=== PATIENT | female | born 1990 | race African-American/Black ===

== ENCOUNTER 2018-08-13 16:42 | Emergency (ER) | payer OTHER ==
[~2018-08-13] VITALS: Ht 172.7 cm; Wt 72.6 kg
[2018-08-13] MEDS ORDERED: IV NORMAL SALINE 1000ML BAG 1,000 ML IV SCH (17:03)
--- NOTE | 2018-08-13 17:12 | PHYS DOC ---
Past Medical History Past Medical History: No Pertinent History Past Surgical History: No Surgical History Alcohol Use: None Drug Use: None Adult General Chief Complaint Chief Complaint: ABDOMINAL PAIN HPI HPI Patient is a 28 year old female who presents with left upper quadrant pain that wraps around to her back that started this morning. She last ate last night and had chips and salsa. Patient states she's only had a couple sips of water today. She's vomited twice and had some diarrhea that started last week. Patient states she's had this same pain when she was 13 but never went for follow-up and never found out what results of an EGD was. She states that EGD was about extending years ago. Patient states she's been having this pain since she was 13 that is just comes and goes. Patient doesn't think it has anything to do with what she is eating. Patient states it is sharp and radiates to the back. Patient denies constipation issues or dysuria. Afebrile. Review of Systems Review of Systems Constitutional: Denies fever or chills [] Eyes: Denies change in visual acuity, redness, or eye pain [] HENT: Denies nasal congestion or sore throat [] Respiratory: Denies cough or shortness of breath [] Cardiovascular: No additional information not addressed in HPI [] GI: Left upper quadrant abdominal pain, nausea, vomiting, denies bloody stools, + diarrhea [] : Denies dysuria or hematuria [] Musculoskeletal: Denies back pain or joint pain [] Integument: Denies rash or skin lesions [] Neurologic: Denies headache, focal weakness or sensory changes [] All other systems were reviewed and found to be within normal limits, except as documented in this note. Current Medications Current Medications Current Medications Medications (Trade) Dose Ordered Sig/Oksana Start Time Stop Time Status Last Admin Dose Admin Famotidine (Pepcid Vial) 20 mg 1X ONCE 08/13/18 17:15 08/13/18 17:16 DC 08/13/18 17:45 20 MG Fentanyl Citrate (Fentanyl 2ml Vial) 50 mcg 1X ONCE 08/13/18 17:15 08/13/18 17:16 DC 08/13/18 17:44 50 MCG Iohexol (Omnipaque 300 Mg/ml) 75 ml 1X ONCE 08/13/18 17:45 08/13/18 17:47 DC 08/13/18 18:02 75 ML Ondansetron HCl (Zofran) 4 mg 1X ONCE 08/13/18 17:15 08/13/18 17:16 DC 08/13/18 17:46 4 MG Sodium Chloride 1,000 ml @ 1,000 mls/hr Q1H 08/13/18 17:03 08/13/18 18:02 DC 08/13/18 17:43 1,000 MLS/HR Allergies Allergies Allergies Coded Allergies Type Severity Reaction Last Updated Verified No Known Drug Allergies 11/07/13 No Physical Exam Physical Exam Constitutional: Well developed, well nourished, no acute distress, non-toxic appearance. [] HENT: Normocephalic, atraumatic, bilateral external ears normal, oropharynx moist, no oral exudates, nose normal. [] Eyes: PERRLA, EOMI, conjunctiva normal, no discharge. [] Neck: Normal range of motion, no tenderness, supple, no stridor. [] Cardiovascular:Heart rate regular rhythm, no murmur [] Lungs & Thorax: Bilateral breath sounds clear to auscultation [] Abdomen: Bowel sounds normal, soft, epigastric and left upper quadrant tenderness, no masses, no pulsatile masses. [] Skin: Warm, dry, no erythema, no rash. [] Back: No tenderness, no CVA tenderness. [] Extremities: No tenderness, no cyanosis, no clubbing, ROM intact, no edema. [] Neurologic: Alert and oriented X 3, normal motor function, normal sensory function, no focal deficits noted. [] Psychologic: Affect normal, judgement normal, mood normal. [] Current Patient Data Vital Signs Vital Signs Date Time Temp Pulse Resp B/P (MAP) Pulse Ox O2 Delivery O2 Flow Rate FiO2 08/13/18 18:31 70 137/88 (104) 100 Room Air 08/13/18 17:44 20 08/13/18 17:00 98.1 98.1 Lab Values Laboratory Tests Test 08/13/18 16:50 08/13/18 17:04 08/13/18 17:10 Urine Collection Type Unknown Urine Color Yellow Urine Clarity Clear Urine pH 6.5 Urine Specific [place] 1.020 Urine Protein Negative mg/dL (NEG-TRACE) Urine Glucose (UA) Negative mg/dL (NEG) Urine Ketones (Stick) Negative mg/dL (NEG) Urine Blood Negative (NEG) Urine Nitrite Negative (NEG) Urine Bilirubin Negative (NEG) Urine Urobilinogen Dipstick 0.2 mg/dL (0.2 mg/dL) Urine Leukocyte Esterase Small (NEG) Urine RBC 1-2 /HPF (0-2) Urine WBC 5-10 /HPF (0-4) Urine Squamous Epithelial Cells Mod /LPF Urine Bacteria Few /HPF (0-FEW) Urine Mucus Slight /LPF Urine Opiates Screen Neg (NEG) Urine Methadone Screen Neg (NEG) Urine Barbiturates Neg (NEG) Urine Phencyclidine Screen Neg (NEG) Urine Amphetamine/Methamphetamine Neg (NEG) Urine Benzodiazepines Screen Neg (NEG) Urine Cocaine Screen Neg (NEG) Urine Cannabinoids Screen Pos (NEG) Urine Ethyl Alcohol Neg (NEG) POC Urine HCG, Qualitative Hcg negative (Negative) White Blood Count 6.3 x10^3/uL (4.0-11.0) Red Blood Count 4.48 x10^6/uL (3.50-5.40) Hemoglobin 13.1 g/dL (12.0-15.5) Hematocrit 40.0 % (36.0-47.0) Mean Corpuscular Volume 89 fL (79-100) Mean Corpuscular Hemoglobin 29 pg (25-35) Mean Corpuscular Hemoglobin Concent 33 g/dL (31-37) Red Cell Distribution Width 13.9 % (11.5-14.5) Platelet Count 176 x10^3/uL (140-400) Neutrophils (%) (Auto) 64 % (31-73) Lymphocytes (%) (Auto) 30 % (24-48) Monocytes (%) (Auto) 5 % (0-9) Eosinophils (%) (Auto) 1 % (0-3) Basophils (%) (Auto) 1 % (0-3) Neutrophils # (Auto) 4.0 x10^3uL (1.8-7.7) Lymphocytes # (Auto) 1.9 x10^3/uL (1.0-4.8) Monocytes # (Auto) 0.3 x10^3/uL (0.0-1.1) Eosinophils # (Auto) 0.1 x10^3/uL (0.0-0.7) Basophils # (Auto) 0.0 x10^3/uL (0.0-0.2) Sodium Level 142 mmol/L (136-145) Potassium Level 3.5 mmol/L (3.5-5.1) Chloride Level 103 mmol/L (98-107) Carbon Dioxide Level 26 mmol/L (21-32) Anion Gap 13 (6-14) Blood Urea Nitrogen 10 mg/dL (7-20) Creatinine 0.7 mg/dL (0.6-1.0) Estimated GFR (Cockcroft-Gault) 119.7 BUN/Creatinine Ratio 14 (6-20) Glucose Level 89 mg/dL (70-99) Calcium Level 9.0 mg/dL (8.5-10.1) Total Bilirubin 0.4 mg/dL (0.2-1.0) Aspartate Amino Transferase (AST) 15 U/L (15-37) Alanine Aminotransferase (ALT) 15 U/L (14-59) Alkaline Phosphatase 58 U/L (46-116) Total Protein 7.8 g/dL (6.4-8.2) Albumin 4.1 g/dL (3.4-5.0) Albumin/Globulin Ratio 1.1 (1.0-1.7) Lipase 48 U/L (73-393) L Laboratory Tests 08/13/18 17:10 Laboratory Tests 08/13/18 17:10 EKG EKG [] Radiology/Procedures Radiology/Procedures CT abdomen pelvis Impressions: [facility] [address] [place], [place] [id number] IMAGING REPORT Signed PATIENT: ASHELY SALINAS ACCOUNT: [id number] : 1990 LOCATION: ER AGE: 28 SEX: F EXAM STATUS: REG ER ORD. PHYSICIAN: MO HARRINGTON APRN REASON: left upper abdominal pain PROCEDURE: CT ABD PELV W/ IV CONTRST ONLY CT abdomen and pelvis with contrast. HISTORY: Left upper quadrant abdominal pain, nausea and vomiting today CT scan of the abdomen and pelvis was done using 75 mL Omnipaque 300 contrast. Lung bases are clear except for linear scarring or atelectasis on the left. There is no effusion. Liver is normal in appearance. There is no calcified gallstone or gallbladder wall thickening. Spleen is normal in appearance. Adrenal glands and pancreas are unremarkable. There is no mass or hydronephrosis in either kidney. There is no bowel obstruction or ascites. There is no free air. There is moderate stool in the colon. There is no adenopathy. Appendix is normal. There is not evidence of an acute diverticulitis. There is no small bowel obstruction. There is a small amount of free fluid in the pelvis which is nonspecific. Uterus is normal in appearance. Ovaries are upper normal in size without a dominant mass or cyst. IMPRESSION: 1. Small amount of fluid in the pelvis, nonspecific. 2. No abdominal or pelvic mass or acute finding noted. 3. Moderate stool in the colon. Electronically signed by: Kurt Redman MD (08/13/2018 6:23 PM) [facility] DICTATED and SIGNED BY: KURT REDMAN MD DATE: 08/13/181817 Course & Med Decision Making Course & Med Decision Making Patient is a 28 year old female who presents with left upper quadrant pain that wraps around to her back that started this morning. She last ate last night and had chips and salsa. Patient states she's only had a couple sips of water today. She's vomited twice and had some diarrhea that started last week. Patient states she's had this same pain when she was 13 but never went for follow-up and never found out what results of an EGD was. She states that EGD was about extending years ago. Patient states she's been having this pain since she was 13 that is just comes and goes. Patient doesn't think it has anything to do with what she is eating. Patient states it is sharp and radiates to the back. Patient denies constipation issues or dysuria. Afebrile. Abdomen is soft but tender on the left upper quadrant and epigastric area. There is no CVA tenderness. Skin pink warm and dry. Mucous membranes are moist. Walks with steady gait. Patient rating her pain out of 10. Blood work is unremarkable. Urinalysis does not show infection. Ultrasound of abdomen and pelvis shows 1. Small amount of fluid in the pelvis, nonspecific. 2. No abdominal or pelvic mass or acute finding noted. 3. Moderate stool in the colon. Patient will be sent home with a stool softener and told to start taking Pepcid twice a day and she will be referred to a GI states this pain has been going on for 16 years. Ana Disclaimer Bryanon Disclaimer This electronic medical record was generated, in whole or in part, using a voice recognition dictation system. Departure Departure Impression: Primary Impression: Epigastric pain Disposition: 01 HOME, SELF-CARE Condition: STABLE Referrals: ALVERTO TORRES DO (PCP) TEMI ZAIDI MD Patient Instructions: Diet for Gastroesophageal Reflux Disease, Adult, Gastroesophageal Reflux Disease, Adult Additional Instructions: Follow-up with her GI doctor since his pain is been going on for many years. Drink plenty of fluids. Start taking Pepcid twice a day and see if that helps her pain. Start taking the Colace stool softener to see if that also helps her pain. Scripts Ondansetron (ONDANSETRON ODT) 4 Mg Tab.rapdis 1 TAB PO PRN Q6-8HRS, #15 TAB Prov: MO HARRINGTON APRN 08/13/18 Docusate Sodium (COLACE) 100 Mg Capsule 1 CAP PO BID for 10 Days, #20 CAP Prov: MO HARRINGTON APRN 08/13/18 Famotidine (PEPCID) 20 Mg Tablet 20 MG PO BID for 10 Days, #20 TAB Prov: MO HARRINGTON APRN 08/13/18 MO HARRINGTON APRN Aug 13, 2018 17:12
[2018-08-13 17:13] LABS: BILIRUBIN,URINE NEGATIVE (NEG); CLARITY,URINE CLEAR; COLOR,URINE YELLOW; NITRITE,URINE NEGATIVE (NEG); PH,URINE 6.5; PROTEIN,URINE NEGATIVE (NEG-TRACE); UROBILINOGEN,URINE 0.2 mg/dL (0.2 mg/dL)
[2018-08-13] MEDS ORDERED: FAMOTIDINE 20 MG/2 ML VIAL IVP ONE (17:15)
[2018-08-13] MEDS ORDERED: fentaNYL PF VIAL 100 MCG/2 ML VIAL IV ONE (17:15)
[2018-08-13] MEDS ORDERED: ONDANSETRON PF 4 MG/2 ML VIAL. IV ONE (17:15)
[2018-08-13 17:21] LABS: BARBITURATES NEG (NEG); BENZODIAZEPINES NEG (NEG); CANNABINOIDS POS (NEG); COCAINE NEG (NEG); METHADONE NEG (NEG); OPIATES NEG (NEG); PHENCYCLIDINE NEG (NEG)
[2018-08-13 17:23] LABS: AMPHETAMINE/METHAMPHETAMINE NEG (NEG); BACTERIA,URINE FEW /HPF (0-FEW); SQUAMOUS EPITHELIAL CELL,UR MOD /LPF
[2018-08-13 17:24] LABS: BASO % 1 % (0-3); EOS # 0.1 x10^3/uL (0.0-0.7); EOS % 1 % (0-3); HEMOGLOBIN 13.1 g/dL (12.0-15.5); LYMPH # 1.9 x10^3/uL (1.0-4.8); LYMPH % 30 % (24-48); MEAN CORPUSCULAR HEMOGLOBIN 29 pg (25-35); MEAN CORPUSCULAR HGB CONC 33 g/dL (31-37); MEAN CORPUSCULAR VOLUME 89 fL (79-100); MONO # 0.3 x10^3/uL (0.0-1.1); MONO % 5 % (0-9); NEUT % 64 % (31-73); PLATELET COUNT 176 x10^3/uL (140-400); RED BLOOD COUNT 4.48 x10^6/uL (3.50-5.40); RED CELL DISTRIBUTION WIDTH 13.9 % (11.5-14.5); WHITE BLOOD COUNT 6.3 x10^3/uL (4.0-11.0)
[2018-08-13 17:41] LABS: CREATININE 0.7 mg/dL (0.6-1.0); GFR 119.7; POTASSIUM 3.5 mmol/L (3.5-5.1)
[2018-08-13 17:44] LABS: ALBUMIN 4.1 g/dL (3.4-5.0); ALBUMIN/GLOBULIN RATIO 1.1 (1.0-1.7); TOTAL BILIRUBIN 0.4 mg/dL (0.2-1.0); TOTAL PROTEIN 7.8 g/dL (6.4-8.2)
[2018-08-13] MEDS ORDERED: IOHEXOL 300 MG/ML 100ML VIAL. IV ONE (17:45)
--- NOTE | 2018-08-13 18:28 | RAD ---
CT abdomen and pelvis with contrast. HISTORY: Left upper quadrant abdominal pain, nausea and vomiting today CT scan of the abdomen and pelvis was done using 75 mL Omnipaque 300 contrast. Lung bases are clear except for linear scarring or atelectasis on the left. There is no effusion. Liver is normal in appearance. There is no calcified gallstone or gallbladder wall thickening. Spleen is normal in appearance. Adrenal glands and pancreas are unremarkable. There is no mass or hydronephrosis in either kidney. There is no bowel obstruction or ascites. There is no free air. There is moderate stool in the colon. There is no adenopathy. Appendix is normal. There is not evidence of an acute diverticulitis. There is no small bowel obstruction. There is a small amount of free fluid in the pelvis which is nonspecific. Uterus is normal in appearance. Ovaries are upper normal in size without a dominant mass or cyst. IMPRESSION: 1. Small amount of fluid in the pelvis, nonspecific. 2. No abdominal or pelvic mass or acute finding noted. 3. Moderate stool in the colon. Electronically signed by: Kurt Redman MD (08/13/2018 6:23 PM) [facility]
[2018-08-13 18:31] VITALS: BP 137/88
[2018-08-13] MEDS ORDERED: FAMO-63 PO (18:35)
[2018-08-13] MEDS ORDERED: DOCU-109 PO (18:35)
[2018-08-13] MEDS ORDERED: ONDA4TAB12 PO (18:52)
== END 2018-08-13 19:00 | disposition home or self-care (01) ==
LOC: ER 16:42
DX: R10.13 Epigastric pain (principal); R10.12 Left upper quadrant pain; R11.2 Nausea with vomiting, unspecified
CPT/HCPCS: 36415; 74177; 80053; 80307; 81001; 81025; 83690; 85025; 87086; 96361; 96374; 96375; 99284; J2405; J3010; J3490; J7030; Q9967